=== PATIENT | female | born 1970 | race Caucasian/White ===

== ENCOUNTER 2022-10-13 06:06 | Day surgery (SDC) | payer OTHER ==
[~2022-10-13] VITALS: Ht 175.3 cm; Wt 104.0 kg
[~2022-10-13 06:06] MED LIST: CEFAZOLIN SOD 2 GM in D5W 50 ML IV ONE
[2022-10-13 07:17] VITALS: O2SAT 99
[2022-10-13] MEDS ORDERED: MEPERIDINE 50 MG/ML VIAL ONE (07:45)
[2022-10-13] MEDS ORDERED: NS 100 ML BAG ONE (07:45)
[2022-10-13] MEDS ORDERED: fentaNYL CITRATE/PF 100 MCG/2 ML AMP ONE (07:45)
[2022-10-13] MEDS ORDERED: NS IRRIG SOLN 1000 ML IR ONE (07:45)
[2022-10-13] MEDS ORDERED: METOCLOPRAMIDE HCL 10 MG/10 ML UDC ONE (07:45)
[2022-10-13] MEDS ORDERED: SEVOFLURANE 15 MIN GAS INH ONE (07:45)
[2022-10-13] MEDS ORDERED: DEXAMETHASONE SOD PHOSPHATE 4 MG/ML VIAL ONE (07:45)
[2022-10-13] MEDS ORDERED: BUPIVACAINE /PF 0.25% 30 ML VIAL INJ ONE (07:45)
[2022-10-13] MEDS ORDERED: HEPARIN SODIUM,PORCINE 10,000 UNIT/ML VIAL ONE (07:45)
[2022-10-13] MEDS ORDERED: LR 1,000 ML IV.SOLN IV ONE (07:45)
[2022-10-13] MEDS ORDERED: MEPERIDINE HCL/PF 25 MG/ML DISP.SYRIN IVP PRN (08:15)
[2022-10-13] MEDS ORDERED: ONDANSETRON HCL 4 MG/2 ML VIAL IVP PRN (08:15)
[2022-10-13] MEDS ORDERED: HYDROmorphone 1 MG/ML INJ. CARTRIDGE IVP PRN (08:15)
[2022-10-13] MEDS ORDERED: LR 1,000 ML IV SCH (08:15)
[2022-10-13] MEDS ORDERED: METOCLOPRAMIDE HCL 10 MG/2 ML VIAL IVP PRN (08:15)
[2022-10-13] MEDS ORDERED: D5/0.45 NS 1,000 ML IV SCH (09:00)
[2022-10-13 11:53] VITALS: BP_SYST 121; PULSE 71; RESP 16
== END 2022-10-13 11:20 | disposition home or self-care (01) ==
LOC: SDS 06:06 → SMU 06:13 → SDS 11:20
PROVIDERS: ATTEND Colon & Rectal Surgery
DX: C50.911 Malignant neoplasm of unspecified site of right female breast (principal); I10 Essential (primary) hypertension; E66.9 Obesity, unspecified; Z68.34 Body mass index [BMI] 34.0-34.9, adult; F17.210 Nicotine dependence, cigarettes, uncomplicated; Z90.89 Acquired absence of other organs; Z79.899 Other long term (current) drug therapy
CPT/HCPCS: 87081; 36571; 71045; 77001; J0690; J7060; J8597; J3490; J1100; J1644; J3010; J2175; J7120; C1788; 76000